=== PATIENT | female | born 1990 | race Caucasian/White ===

== ENCOUNTER 2016-09-10 11:52 | Emergency (ER) | payer OTHER ==
[~2016-09-10] VITALS: Ht 157.5 cm; Wt 89.0 kg
[~2016-09-10 11:52] MED LIST: CALC200T PO; CALC60TA2 PO; IBUP800T25 PO; PERCOCET PO; PREN1TAB64 PO
[2016-09-10 11:55] VITALS: Ht 157.5 cm; Wt 89.0 kg
--- NOTE | 2016-09-10 14:09 | ERD ---
ER Documentation Chief Complaint Date/Time DATE: 09/10/16 TIME: 14:06 Chief Complaint FROM [facility] , 10 WEEKS WITH SPOTTING HPI This is a 25-year-old female who presents to the emergency department today complaining of some brown discharge and spotting for the past 2 days. Patient states that she followed up with her clinic today and was told that there was no heart tones on her ultrasound and was sent here to the emergency department for further evaluation. States she does have some crampy abdominal pain. States that she was placed on Macrobid 2 days ago for urinary tract infection. She is not taking any medication for the pain. States she has intermittent nausea. Denies any fevers or chills. ROS All systems reviewed and are negative except as per history of present illness. Medications Home Meds Active Scripts Acetaminophen* (Tylophen*) 500 Mg Capsule, 1 CAP PO Q6H Y for PAIN AND OR ELEVATED TEMP, #30 CAP Prov:HERMILA MCKEON PA-C 09/10/16 Oxycodone Hcl/Acetaminophen (Percocet) 1 Tab Tab, 2 TAB PO Q4H Y for PAIN LEVEL 6-10, #30 TAB 0 Refills Prov:LOUIE LANDA MD 06/22/15 Ibuprofen* (Ibuprofen*) 800 Mg Tab, 800 MG PO Q8, #20 TAB 0 Refills Prov:LOUIE LANDA MD 06/22/15 Reported Medications Calcium Carbonate* (Tums*) 500 Mg Tab.chew, 500 MG PO TID Y for HEARTBURN, TAB.CHEW 05/28/15 Calcium Gluconate (Calcium Gluconate) 650 Mg Tablet, 650 MG PO BID, TAB 04/10/15 PNV CMB#95/Ferrous Fumarate/FA ( Tablet) 1 Each Tablet, 1 TAB PO DAILY, TAB 02/28/15 Allergies Allergies: Coded Allergies: Milk Containing Products (Verified Allergy, Severe, 05/28/15) peanut (Unverified Allergy, Unknown, 05/28/15) Physical Exam Vitals Vital Signs Date Time Temp Pulse Resp B/P Pulse Ox O2 Delivery O2 Flow Rate FiO2 09/10/16 11:55 98.3 88 18 143/90 99 Physical Exam Const: Tearful, no acute distress Head: Atraumatic Eyes: Normal Conjunctiva ENT: Normal External Ears, Nose and Mouth. Neck: Full range of motion..~ No meningismus. Resp: Clear to auscultation bilaterally Cardio: Regular rate and rhythm, no murmurs Abd: Soft, non tender, non distended. Normal bowel sounds. No right lower quadrant pain. No left lower quadrant pain. Skin: No petechiae or rashes Back: No midline or flank tenderness Ext: No cyanosis, or edema Neur: Awake and alert Psych: Normal Mood and Affect Result Diagram: 09/10/16 1430 Results 24 hrs Laboratory Tests Test 09/10/16 14:30 Basophils # 0.010^3/ul Basophils % 0.6% Beta HCG, Quantitative 5312.8mIU/ml Eosinophils # 0.110^3/ul Eosinophils % 1.3% Hematocrit 43.4% Hemoglobin 14.8g/dl Lymphocytes # 2.310^3/ul Lymphocytes % 31.6% Mean Corpuscular Hemoglobin 30.5pg Mean Corpuscular Hemoglobin Concent 34.1g/dl Mean Corpuscular Volume 89.5fl Mean Platelet Volume 11.0fl Monocytes # 0.510^3/ul Monocytes % 6.3% Neutrophils # 4.310^3/ul Neutrophils % 60.1% Nucleated Red Blood Cells # 0.010^3/ul Nucleated Red Blood Cells % 0.0/100WBC Platelet Count 55602^3/UL Red Blood Count 4.8510^6/ul Red Cell Distribution Width 12.6% Urine Bilirubin NEGATIVE Urine Clarity CLEAR Urine Color LT. YELLOW Urine Epithelial Cells OCCASIONAL Urine Glucose NEGATIVE% Urine Hemoglobin TRACE Urine Ketones NEGATIVE Urine Leukocyte Esterase NEGATIVE Urine Microscopic RBC 0-2/HPF Urine Microscopic WBC NONE SEEN/HPF Urine Nitrite NEGATIVE Urine Specific [place] 1.010 Urine Total Protein NEGATIVE Urine Urobilinogen 0.2 E.U./dL Urine pH 6.0 White Blood Count 7.110^3/ul DIAGNOSTIC IMAGING REPORT Patient: IZABELA SMITH : 1990 Age: 25 Sex: F MR #: [id number] DOS: 09/10/16 1405 Ordering MD: HERMILA MCKEON PA-C Location: [facility] Room/Bed: PROCEDURE: Obstetrical ultrasound . CLINICAL INDICATION: Vaginal bleeding TECHNIQUE: Multiple sonographic images of the pelvis were obtained utilizing a transabdominal and endovaginal technique. The images were reviewed on a PACS workstation. COMPARISON: None. FINDINGS: The uterus measures 9.7 x 5.5 cm. There is a single intrauterine present with the crown-rump length measuring 1.8 cm which corresponds to a calculated gestational age of 8 weeks and 2 days. No heart tones noted. There is a small area of subchorionic hemorrhage. The right ovary measures 3.4 x 2.2 x 3.0 cm. The left ovary measures 3.8 x 1.7 x 2.2 cm. There is a 2.2 cm corpus luteum cyst in the right ovary. No significant free fluid is present within the pelvis. RPTAT: AA IMPRESSION: Single intrauterine at 8 weeks and 2 days. No heart tones noted, consistent with demise. Small area of subchorionic hemorrhage. Right ovarian hemorrhagic corpus luteum cyst. .Robbi Dietz MD, MD Date Time Electronically viewed and signed by .Robbi Dietz MD, on 09/10/2016 15: 16 .S/ CC: HERMILA MCKEON PA-C Procedures/[facility] This is a A1 25-year-old female who presents to the emergency department today for further evaluation after being seen by her clinic and having an ultrasound with no heart tones. Patient is approximately 10 weeks . Given this I did obtain a complete OB workup. Laboratory work shows no elevated white blood cell count. She is not anemic. Platelets are within normal limits. UA is negative for infection. Beta quant hCG 5312.8 Rh status B + Ultrasound shows a single intrauterine at 8 weeks and 2 days. There are no heart tones consistent with demise. There is a small area of subchorionic hemorrhage. There is a 2.2 cm corpus luteum cyst in the right ovary. There is no significant free fluid present within the pelvis. Patient symptoms at this time is consistent with demise and missed . I have explained this to the patient. Patient was instructed to get a repeat beta quant in 48 hours to make sure that it is trending down. She is instructed to follow-up with her clinic for a likely D&C. Patient indicated she has an appointment on Tuesday at her [facility] for follow-up She declined any pain medication or medication for nausea here in the emergency department. I will give her a prescription for Tylenol for home. At this time the patient is stable for discharge and outpatient management. Patient should follow up with their PCP in the next 1-2 days. They may return to the emergency department sooner for any persistent or worsening of symptoms. Patient understood and agreed with the plan. Departure Diagnosis: Primary Impression: Vaginal bleeding in patient at less than 20 weeks gestation Condition: HERMILA Salazar PA-C Sep 10, 2016 14:09
[2016-09-10 14:37] LABS: ADD SCAN DIFF NO
[2016-09-10 14:40] LABS: BASOPHILS % 0.6 % (0.0-2.0); EOSINOPHILS # 0.1 10^3/ul (0.0-0.5); EOSINOPHILS % 1.3 % (0.0-7.0); HEMATOCRIT 43.4 % (37.0-47.0); HEMOGLOBIN 14.8 g/dl (12.0-16.0); LYMPHOCYTES # 2.3 10^3/ul (0.8-2.9); LYMPHOCYTES % 31.6 % (15.0-51.0); MEAN CORPUSCULAR HEMOGLOBIN 30.5 pg (29.0-33.0); MEAN CORPUSCULAR HGB CONC 34.1 g/dl (32.0-37.0); MEAN CORPUSCULAR VOLUME 89.5 fl (82.0-101.0); MONOCYTE # 0.5 10^3/ul (0.3-0.9); MONOCYTES % 6.3 % (0.0-11.0); NEUTROPHIL # 4.3 10^3/ul (1.6-7.5); NEUTROPHILS % 60.1 % (39.0-77.0); PLATELET COUNT 263 10^3/UL (140-415); RED BLOOD COUNT 4.85 10^6/ul (4.20-5.40); RED CELL DISTRIBUTION WIDTH 12.6 % (11.5-14.5); WHITE BLOOD COUNT 7.1 10^3/ul (4.8-10.8)
[2016-09-10 14:41] LABS: ADD UMIC YES; URINE BILIRUBIN (Dip) NEGATIVE (NEGATIVE); URINE BLOOD (Dip) TRACE (NEGATIVE); URINE COLOR LT. YELLOW (YELLOW); URINE GLUCOSE (Dip) NEGATIVE (NEGATIVE); URINE KETONES (Dip) NEGATIVE (NEGATIVE); URINE LEUKOCYTE ESTERASE (Dip) NEGATIVE (NEGATIVE); URINE NITRITE (Dip) NEGATIVE (NEGATIVE); URINE TOTAL PROTEIN (Dip) NEGATIVE (NEGATIVE); URINE UROBILINOGEN (Dip) 0.2 E.U./dL (0.1-1.0)
[2016-09-10 14:49] LABS: URINE RBCS 0-2 /HPF (0)
--- NOTE | 2016-09-10 15:16 | RADRPT ---
PROCEDURE: Obstetrical ultrasound . CLINICAL INDICATION: Vaginal bleeding TECHNIQUE: Multiple sonographic images of the pelvis were obtained utilizing a transabdominal and endovaginal technique. The images were reviewed on a PACS workstation. COMPARISON: None. FINDINGS: The uterus measures 9.7 x 5.5 cm. There is a single intrauterine present with the crown-rump length measuring 1.8 cm which c orresponds to a calculated gestational age of 8 weeks and 2 days. No heart tones noted. There is a small area of subchorionic hemorrhage. The right ovary measures 3.4 x 2.2 x 3.0 cm. The left ovary measures 3.8 x 1.7 x 2.2 cm. There is a 2.2 cm corpus luteum cyst in the right ovary. No significant free fluid is present within the pelvis. RPTAT: AA IMPRESSION: Single intrauterine at 8 weeks and 2 days. No heart tones noted, consistent with demise. Small area of subchorionic hemorrhage. Right ovarian hemorrhagic corpus luteum cyst. .Robbi Dietz MD, MD Date Time Electronically viewed and signed by .Robbi Dietz MD, on 09/10/2016 15:16 .S/
[2016-09-10] MEDS ORDERED: ACET500C5 PO (16:23)
== END 2016-09-10 16:50 | disposition home or self-care (01) ==
LOC: FTE 11:52
DX: O20.9 Hemorrhage in early pregnancy, unspecified (principal); Z3A.08 8 weeks gestation of pregnancy
CPT/HCPCS: 36415; 76801; 76817; 81001; 81003; 84702; 85025; 86900; 86901; Z7502

== ENCOUNTER 2016-09-15 19:28 | Inpatient (IN) | payer OTHER ==
[~2016-09-15] VITALS: Ht 160 cm; Wt 88.2 kg
[~2016-09-15 19:28] MED LIST changes: +ACET500C5 PO
[2016-09-15] MEDS ORDERED: SOD CHLORIDE 0.9% 1,000 ML IV STA (20:05)
[2016-09-15] MEDS ORDERED: ONDANSETRON 4 MG INJ IV STA (20:05)
[2016-09-15 20:30] LABS: ADD SCAN DIFF NO
[2016-09-15] MEDS ORDERED: morphine 10 MG INJ IV ONE (20:30)
[2016-09-15 20:32] LABS: ADD UMIC YES; BASOPHIL # 0.1 10^3/ul (0.0-0.1); BASOPHILS % 0.8 % (0.0-2.0); EOSINOPHILS # 0.3 10^3/ul (0.0-0.5); EOSINOPHILS % 2.5 % (0.0-7.0); HEMOGLOBIN 14.3 g/dl (12.0-16.0); LYMPHOCYTES # 3.3 10^3/ul (0.8-2.9); LYMPHOCYTES % 31.1 % (15.0-51.0); MEAN CORPUSCULAR HEMOGLOBIN 30.9 pg (29.0-33.0); MEAN CORPUSCULAR HGB CONC 34.9 g/dl (32.0-37.0); MEAN CORPUSCULAR VOLUME 88.6 fl (82.0-101.0); MEAN PLATELET VOLUME 10.9 fl (7.4-10.4); MONOCYTE # 0.8 10^3/ul (0.3-0.9); MONOCYTES % 7.9 % (0.0-11.0); NEUTROPHIL # 6.1 10^3/ul (1.6-7.5); NEUTROPHILS % 57.4 % (39.0-77.0); PLATELET COUNT 275 10^3/UL (140-415); RED BLOOD COUNT 4.63 10^6/ul (4.20-5.40); RED CELL DISTRIBUTION WIDTH 12.7 % (11.5-14.5); URINE BILIRUBIN (Dip) NEGATIVE (NEGATIVE); URINE BLOOD (Dip) 3+ (NEGATIVE); URINE GLUCOSE (Dip) NEGATIVE (NEGATIVE); URINE KETONES (Dip) NEGATIVE (NEGATIVE); URINE LEUKOCYTE ESTERASE (Dip) NEGATIVE (NEGATIVE); URINE NITRITE (Dip) NEGATIVE (NEGATIVE); URINE TOTAL PROTEIN (Dip) NEGATIVE (NEGATIVE); URINE UROBILINOGEN (Dip) 0.2 E.U./dL (0.1-1.0); WHITE BLOOD COUNT 10.7 10^3/ul (4.8-10.8)
[2016-09-15 20:34] LABS: URINE COLOR PALE PINK (YELLOW)
[2016-09-15 20:46] LABS: SQUAMOUS EPITHELIAL CELL,UR FEW
[2016-09-15 20:47] LABS: BACTERIA,URINE RARE
--- NOTE | 2016-09-15 22:05 | RADRPT ---
PROCEDURE: US Pelvis. CLINICAL INDICATION: Vaginal bleeding. History of embryonic demise 09/10/2016 TECHNIQUE: Multiple sonographic images of the pelvis were obtained utilizing a transabdominal and endovaginal technique. The images were reviewed on a PACS workstation. COMPARISON: 09/10/2016 FINDINGS: Uterus: Normal in size, contour and echogenicity with no evidence for myometrial masses. Size is est imated at 11.5 x 5.7 x 5.2 cm. Cervix: No abnormalities of significance are seen. Endometrium: Previously identified gestational sac, yolk sac and pole are no longer evident, the thickness is increased estimated at 29.4 mm. There is increased blood flow consistent with a ret ained products of conception as well as blood clots. Right ovary / adnexa: Normal in size estimated at 3.8 x 2.6 x 1.9 cm. No evidence for masses, norm al blood flow on Doppler interrogation. Left ovary/adnexa: Normal in size estimated at 3.4 x 1.8 x 1.7 cm. No evidence for solid masses, no rmal blood flow on Doppler interrogation. Cul-de-sac: No evidence of free fluid. RPTAT:HJJR IMPRESSION: 1. Slight increased blood flow within the thickened endometrium is concerning for retained products of conception, the gestational sac and pole on the study of 09/10/2016 are no longer visualiz ed. 2. Sonographically normal ovaries and adnexa. Physician Agata Date Time Electronically viewed and signed by Physician Agata on 09/15/2016 22:04 /
[2016-09-15] MEDS ORDERED: SOD CHLORIDE 0.9% 250 ML IV ONE (22:43)
--- NOTE | 2016-09-15 22:45 | QN ---
Documentation Comment My independent concise history is vaginal bleeding. My pertinent physical exam findings are passing clots with vaginal bleeding. The plan is transfusion of 2 units of packed red blood cells, coagulation screen, and OB admission. KORIN MOSER MD Sep 15, 2016 22:45
--- NOTE | 2016-09-15 22:58 | ERD ---
ER Documentation Chief Complaint Date/Time DATE: 09/15/16 TIME: 22:55 Chief Complaint miscarried on tue (8 wks 3 days), bleeding w cramps HPI This is a 26-year-old female presents to the ER with bleeding and cramping that started earlier today. Patient states that she miscarried on Tuesday. Patient was told to take medication by her OB however patient did not. Patient began to have severe bleeding this afternoon. She did pass some large clots earlier today. Patient took Motrin for the pain. Patient denies any urinary frequency or dysuria. She denies any vaginal discharge. Patient does have a history of a right hemorrhagic ovarian cyst. Patient denies any nausea vomiting or diarrhea. She denies any dizziness or weakness. A2. ROS 12 point review of systems was done, all negative except per HPI. Medications Home Meds Active Scripts Acetaminophen* (Tylophen*) 500 Mg Capsule, 1 CAP PO Q6H Y for PAIN AND OR ELEVATED TEMP, #30 CAP Prov:HERMILA MCKEON PA-C 09/10/16 Oxycodone Hcl/Acetaminophen (Percocet) 1 Tab Tab, 2 TAB PO Q4H Y for PAIN LEVEL 6-10, #30 TAB 0 Refills Prov:LOUIE LANDA MD 06/22/15 Ibuprofen* (Ibuprofen*) 800 Mg Tab, 800 MG PO Q8, #20 TAB 0 Refills Prov:LOUIE LANDA MD 06/22/15 Reported Medications Calcium Carbonate* (Tums*) 500 Mg Tab.chew, 500 MG PO TID Y for HEARTBURN, TAB.CHEW 05/28/15 Calcium Gluconate (Calcium Gluconate) 650 Mg Tablet, 650 MG PO BID, TAB 04/10/15 PNV CMB#95/Ferrous Fumarate/FA ( Tablet) 1 Each Tablet, 1 TAB PO DAILY, TAB 02/28/15 Allergies Allergies: Coded Allergies: Milk Containing Products (Verified Allergy, Severe, 05/28/15) peanut (Unverified Allergy, Unknown, 05/28/15) PMhx/Soc History of Surgery: No Anesthesia Reaction: No Hx Neurological Disorder: No Hx Respiratory Disorders: No Hx Cardiac Disorders: No Hx Psychiatric Problems: No Hx Miscellaneous Medical Probl: No Hx Alcohol Use: No Hx Substance Use: No Hx Tobacco Use: No Physical Exam Vitals Vital Signs Date Time Temp Pulse Resp B/P Pulse Ox O2 Delivery O2 Flow Rate FiO2 09/15/16 19:46 98.6 87 20 121/81 99 Physical Exam GENERAL: The patient is well developed and appropriate for usual state of health , in no apparent distress. HEENT: Atraumatic. CHEST: Clear to auscultation bilaterally. There are no rales, wheezes or rhonchi. HEART: Regular rate and rhythm. No murmurs, clicks, rubs or gallops. ABDOMEN: Soft, nontender and nondistended. Good bowel sounds. No rebound or guarding. No gross peritonitis. No gross organomegaly or masses. No Serrano sign or McBurney point tenderness. : patient has severe vaginal bleeding with large clots NEURO: Alert and oriented. SKIN: The skin is warm and dry. Result Diagram: 09/15/162024 Results 24 hrs Laboratory Tests Test 09/15/16 20:25 Basophils # 0.110^3/ul Basophils % 0.8% Beta HCG, Quantitative 1530.9mIU/ml Eosinophils # 0.310^3/ul Eosinophils % 2.5% Hematocrit 41.0% Hemoglobin 14.3g/dl Lymphocytes # 3.310^3/ul Lymphocytes % 31.1% Mean Corpuscular Hemoglobin 30.9pg Mean Corpuscular Hemoglobin Concent 34.9g/dl Mean Corpuscular Volume 88.6fl Mean Platelet Volume 10.9fl Monocytes # 0.810^3/ul Monocytes % 7.9% Neutrophils # 6.110^3/ul Neutrophils % 57.4% Nucleated Red Blood Cells # 0.010^3/ul Nucleated Red Blood Cells % 0.0/100WBC Platelet Count 63954^3/UL Red Blood Count 4.6310^6/ul Red Cell Distribution Width 12.7% Urine Bacteria RARE Urine Bilirubin NEGATIVE Urine Clarity CLEAR Urine Color PALE PINK Urine Glucose NEGATIVE% Urine Hemoglobin 3+ Urine Ketones NEGATIVE Urine Leukocyte Esterase NEGATIVE Urine Microscopic RBC 10-25/HPF Urine Microscopic WBC 0-2/HPF Urine Nitrite NEGATIVE Urine Specific [place] <=1.005 Urine Squamous Epithelial Cells FEW Urine Total Protein NEGATIVE Urine Urobilinogen 0.2 E.U./dL Urine pH 6.5 White Blood Count 10.710^3/ul Current Medications Medications (Trade) Dose Ordered Sig/Thad Route PRN Reason Start Time Stop Time Status Last Admin Dose Admin Sodium Chloride (NS) 1,000 ml @ 1,000 mls/hr Q1H STAT IV 09/15/16 20:05 09/15/16 21:04 DC 09/15/16 20:26 Morphine Sulfate (morphine) 6 mg ONCE ONCE IV 09/15/16 20:30 09/15/16 20:31 DC Ondansetron HCl 4 mg 4 mg ONCE STAT IV 09/15/16 20:05 09/15/16 20:07 DC Doxycycline Hyclate 100 mg/ Sodium Chloride 250 ml @ 250 mls/hr ONCE IVPB 09/15/16 23:00 Sodium Chloride (NS) 250 ml @ 0 mls/hr Q0M ONCE IV 09/15/16 22:43 09/15/16 22:44 DC Ondansetron HCl (Zofran Inj) 4 mg BRIDGE ORDER PRN IV NAUSEA AND/OR VOMITING 09/15/16 23:00 09/16/16 22:59 Acetaminophen (Tylenol Tab) 650 mg ER BRIDGE PRN PO MILD PAIN/FEVER 09/15/16 23:00 09/16/16 22:59 Oxytocin (Oxytocin) 40 units ONCE ONCE IV 09/15/16 23:00 09/15/16 23:01 UNV Methylergonovine Maleate (Methergine) 0.2 mg ONCE ONCE IM 09/15/16 23:00 09/15/16 23:01 Procedures/MDM This is a 26-year-old female presents to the ER with severe vaginal bleeding. I consulted glabrous on-call and patient would benefit from a D&C as she is bleeding a lot. Patient will be admitted for a D&C. This time she is hemodynamically dynamically stable and her vital signs are stable. Pain is controlled. Departure Diagnosis: Primary Impression: Vaginal bleeding Condition: Stable KALEE BRUNO Sep 15, 2016 22:58
[2016-09-15] MEDS ORDERED: DOXYCYCLINE 100 MG in SOD CHLORIDE 0.9% 250 ML IVPB SCH (23:00)
[2016-09-15] MEDS ORDERED: METHYLERGONOVINE 0.2 MG INJ IM ONE (23:00)
[2016-09-15] MEDS ORDERED: ACETAMINOPHEN 325 MG TAB PO PRN (23:00)
[2016-09-15] MEDS ORDERED: ONDANSETRON 4 MG INJ IV PRN (23:00)
[2016-09-15] MEDS ORDERED: OXYTOCIN 10 UNIT INJ IV ONE (23:00)
--- NOTE | 2016-09-15 23:19 | CONS ---
Date/Time of Note Date/Time of Note DATE: 09/15/16 TIME: 23:11 Assessment/Plan Assessment/Plan Chief Complaint/Hosp Course Heavy vaginal bleeding, due to incomplete miscarriage Patient had an episode of fainting and syncope in the restroom in the ED Her vitals now are stable I have discussed with the patient regarding the D&C. Risk and benefit of procedure including risk of infection, bleeding damage to surrounding structures including uterine perforation and risk of damage to bowel and bladder and adjacent structures and the risk of blood transfusion including but not limited to blood borne infection including HIV, hepatitis B and C and transfusion reaction, risk of uterine scar and future infertility, small also discussed with the patient in detail. Informed consent was obtained. All patient's questions were answered to the patient's best satisfaction. Ordered labs including fibrinogen and FDP as well as DIC panel Type and cross 2 units of blood IV line with IV fluid bolus Doxycycline 100 mg 1 ordered to be started in the ED Called OR and patient was both as an emergency Awaiting to hear from OR Methergine 0.2 mg IM 1 Pitocin 40 units in IV fluid to be started in the ED Problems: Consultation Date/Type/Reason Admit Date/Time Date of Consultation: Sep 15, 2016 Type of Consultation: [employer]ST Reason for Consultation heavy vaginal bleeding and syncope episode in ED Hx of Present Illness 26 years old with amenorrhea for 13 weeks and 4 days by her LMP and possible missed Ab, presented to ED with complaint of very heavy vaginal bleeding with passing large clots that has significantly worsened today. Bleeding started about 2 weeks ago she had initially spotting that gradually worsened for the past 2-3 days. She reports that she has passed some tissue as well as some blood clots when she arrived to the hospital. She also passed out when she was using the restroom in the ED however she did not have any trauma per report from [facility] who saw the patient and presented to me. I was consulted by ED attending to evaluate this patient for heavy vaginal bleeding after miscarriage. Patient apparently had an ultrasound 10 days ago in the emergency room that did not show any cardiac activity in the fetus that was consistent with demise. Ultrasound today showed thickened endometrial lining with evidence of echogenic material concerning for retained products of conception. Prior ultrasound on September 10 showed evidence of a fetus with no cardiac activity. The current ultrasound did not show evidence of fetus but is more consistent with retained products of conception Per patient was not planned. She was using condoms for control. LMP 06/12/2016. Patient had a history of full-term and status post 1. Had also a history of miscarriages prior to current . Subjective hx not possible: other Constitutional: requiring IVF Eyes: no complaints ENT: no complaints Respiratory: no complaints Cardiovascular: no complaints Gastrointestinal: no complaints Genitourinary: bleeding ( complains of very heavy vaginal bleeding and passing large clots and passed some tissue prior to coming to the hospital) Musculoskeletal: back pain, other (Cramps) Neurologic: dizziness Endocrine: no complaints Lymphatic: no complaints Psychological: anxiety, other (Sad) Past Medical History Medical History: no pertinent history Past Surgical History Status post section 1 Family History Significant Family History: no pertinent family hx Social History Alcohol Use: none Smoking Status: Never smoker Drug Use: none Other Social History 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 Boyfriend is at bedside and provides good support Exam/Review of Systems Vital Signs Vitals Vital Signs Date Time Temp Pulse Resp B/P Pulse Ox O2 Delivery O2 Flow Rate FiO2 09/15/16 19:46 98.6 87 20 121/81 99 Exam Constitutional: alert, oriented, other (Overweight), well developed Psych: anxiety, other (Sad) Head: atraumatic, normocephalic Eyes: EOMI, nl conjunctiva, nl lids ENMT: nl external ears & nose, nl lips & teeth, nl nasal mucosa & septum Neck: non-tender, supple Respiratory: clear to auscultation, normal air movement Cardiovascular: nl pulses, regular rate and rhythm Gastrointestinal: nl liver, spleen, non-tender, soft Genitourinary - Female: other (Speculum examination: Large amounts of blood clots noted coming through the cervix. There is about 200 cc blood on the tox at the time of examination as well as 100 cc blood noted filling this speculum was performed exam), uterus (Bimanual examination uterus about 11-12 cm size nontender. Cervix is about 1 cm open with some blood clots palpable through the cervix no adnexal tenderness. No uterine tenderness.) Musculoskeletal: nl extremities to inspection, nl gait and stance Extremities: normal pulses Neurological: ELECTRIC RANGE PREPARER II-XII intact, nl mental status, nl speech, nl strength Results Result Diagram: 09/15/162024 Results 24 hrs Laboratory Tests Test 09/15/16 20:25 Basophils # 0.1 Basophils % 0.8 Beta HCG, Quantitative 1530.9 Eosinophils # 0.3 Eosinophils % 2.5 Hematocrit 41.0 Hemoglobin 14.3 Lymphocytes # 3.3 H Lymphocytes % 31.1 Mean Corpuscular Hemoglobin 30.9 Mean Corpuscular Hemoglobin Concent 34.9 Mean Corpuscular Volume 88.6 Mean Platelet Volume 10.9 H Monocytes # 0.8 Monocytes % 7.9 Neutrophils # 6.1 Neutrophils % 57.4 Nucleated Red Blood Cells # 0.0 Nucleated Red Blood Cells % 0.0 Platelet Count 275 Red Blood Count 4.63 Red Cell Distribution Width 12.7 Urine Bacteria RARE Urine Bilirubin NEGATIVE Urine Clarity CLEAR Urine Color PALE PINK Urine Glucose NEGATIVE Urine Hemoglobin 3+ H Urine Ketones NEGATIVE Urine Leukocyte Esterase NEGATIVE Urine Microscopic RBC 10-25 Urine Microscopic WBC 0-2 Urine Nitrite NEGATIVE Urine Specific [place] <=1.005 L Urine Squamous Epithelial Cells FEW Urine Total Protein NEGATIVE Urine Urobilinogen 0.2 E.U./dL Urine pH 6.5 White Blood Count 10.7 # Medications Medications Current Medications Doxycycline Hyclate/Sodium Chloride (Vibramycin/NS) 250 ml @ 250 mls/hr ONCE IVPB ; Start 09/15/16 at 23:00 Oxytocin (Oxytocin) 40 units ONCE ONCE IV ; Start 09/15/16 at 23:00; Stop 09/15 at 23:01; Status UNV Procedures Procedures PROCEDURE: US Pelvis. CLINICAL INDICATION: Vaginal bleeding. History of embryonic demise 09/10/2016 TECHNIQUE: Multiple sonographic images of the pelvis were obtained utilizing a transabdominal and endovaginal technique. The images were reviewed on a PACS workstation. COMPARISON: 09/10/2016 FINDINGS: Uterus: Normal in size, contour and echogenicity with no evidence for myometrial masses. Size is estimated at 11.5 x 5.7 x 5.2 cm. Cervix: No abnormalities of significance are seen. Endometrium: Previously identified gestational sac, yolk sac and pole are no longer evident, the thickness is increased estimated at 29.4 mm. There is increased blood flow consistent with a retained products of conception as well as blood clots. Right ovary / adnexa: Normal in size estimated at 3.8 x 2.6 x 1.9 cm. No evidence for masses, normal blood flow on Doppler interrogation. Left ovary/adnexa: Normal in size estimated at 3.4 x 1.8 x 1.7 cm. No evidence for solid masses, normal blood flow on Doppler interrogation. Cul-de-sac: No evidence of free fluid. RPTAT:HJJR IMPRESSION: 1. Slight increased blood flow within the thickened endometrium is concerning for retained products of conception, the gestational sac and pole on the study of 09/10/2016 are no longer visualized. 2. Sonographically normal ovaries and adnexa. ROSA BALDERAS MD Sep 15, 2016 23:19
[2016-09-16] VITALS (19 sets, daily range): BP systolic 91–121; BP diastolic 45–72; PULSE 68–92; RESP 14–24; Ht 160 cm; Wt 88.2 kg
[2016-09-16] MEDS ORDERED: GLYCOPYRROLATE 0.4 MG INJ ONE (00:21)
[2016-09-16] MEDS ORDERED: NEOSTIGMINE 3 MG/3 ML SYRINGE ONE (00:21)
[2016-09-16] MEDS ORDERED: PROPOFOL 20 ML ONE (00:21)
[2016-09-16] MEDS ORDERED: LIDOCAINE 2% (SDV) 5 ML INJ ONE (00:21)
[2016-09-16] MEDS ORDERED: ROCURONIUM 50 MG INJ ONE (00:21)
[2016-09-16] MEDS ORDERED: SUCCINYLCHOLINE CHLORIDE 100 MG/5 ML SYG IV ONE (00:21)
[2016-09-16] MEDS ORDERED: MEPERIDINE 100 MG INJ ONE (00:21)
[2016-09-16 00:23] LABS: FIBRIN SPLIT PRODUCT <10 ug/ml (<10)
[2016-09-16] MEDS ORDERED: ONDANSETRON 4 MG INJ ONE (00:24)
[2016-09-16] MEDS ORDERED: METOCLOPRAMIDE 10 MG INJ ONE (00:24)
[2016-09-16] MEDS ORDERED: MIDAZOLAM 1 MG/ML 2 ML INJ IV PRN (00:30)
[2016-09-16] MEDS ORDERED: METOCLOPRAMIDE 10 MG INJ IV PRN (00:30)
[2016-09-16] MEDS ORDERED: FENTAnyl 50 MCG/ML VIAL IV PRN ×2 (00:30)
[2016-09-16] MEDS ORDERED: HYDROmorphONE (0.2 MG/ML) 10ML SYG IV PRN ×2 (00:30)
[2016-09-16] MEDS ORDERED: ONDANSETRON 4 MG INJ IV PRN (00:30)
[2016-09-16] MEDS ORDERED: DIPHENHYDRAMINE 50 MG INJ IV PRN (00:30)
[2016-09-16] MEDS ORDERED: MEPERIDINE 25 MG INJ IV PRN (00:30)
[2016-09-16 00:34] LABS: INR 0.97; PROTIME 12.9 Sec (12.2-14.2)
[2016-09-16 00:35] LABS: PARTIAL THROMBOPLASTIN TIME 30.6 Sec (25.0-35.0); THROMBIN TIME 15.7 SEC (13.8-19.1)
[2016-09-16] MEDS ORDERED: OXYTOCIN 10 UNIT INJ ONE (00:42)
[2016-09-16] MEDS ORDERED: CEFAZOLIN 1 GM INJ ONE (00:49)
[2016-09-16] MEDS ORDERED: HYDROCODONE/APAP (5/325) TAB PO PRN (01:30)
[2016-09-16] MEDS ORDERED: IBUPROFEN 600 MG TAB PO PRN (01:30)
--- NOTE | 2016-09-16 01:43 | OPR ---
Operative Report Planned Procedure Free Text/Dictation 26-year-old with heavy vaginal bleeding consistent with incomplete miscarriage with recent episodes of syncope in the emergency room will be transferred to the OR for emergency D&C Procedure date Sep 16, 2016 Procedure(s) Dilatation and curettage Performed by: ROSA BALDERAS MD Anesthesiologist: TIERRA CARTER MD Pre-procedure diagnosis Incomplete miscarriage Anesthesia Type: MAC Procedure Description Under satisfactory LMA] anesthesia, the patient was prepped and draped and placed in dorsal lithotomy position. timeout completed and placed patient identified correctly. Then examined under anesthesia performed and uterus was noted to be about 12 cm size. Up in placement of the weighted speculum large amount of blood clots as well as large placental tissue was noted expelling through the cervix that was removed using ring forceps. There was a total of about 150 cc blood clot inside the vagina expelled. then the weighted speculum was placed inside the vagina and the cervix was noted to be completely open. Anterior lip of the cervix was grasped with tenaculum. Using a uterine sound the depth of the uterus was measured and was noted to be about 11 cm. Cervix was fully dilated and it was accommodating Hegar dilator #10. Then using an Vacurette #10 while suctioning the entire endometrial cavity and 360 was suction. Then using sharp curettes the entire endometrium at 360 was curettes. Gritty sensation was noted that confirmed adequate removal of products of conception. Then the tenaculum from anterior lip of the cervix was removed. There was bleeding from the right side of the cervix of the area of tenaculum placement. Bleeding was controlled using a single figure of 8 suture using 2-0 Vicryl. Then the uterus was noted to be contracted. Hemostasis noted to be complete. Then the instrument removed from vagina. Patient tolerated the procedure well. Sponge lap counts and needle counts were correct 2. Patient was then transferred to recovery room in stable condition She will be transferred to [facility] and will be kept overnight for observation. Of note that patient received 2 g of Ancef during the procedure. Doxycycline had been ordered in the emergency room but had not been administered to the patient although it had been ordered to be administered preoperatively. Patient will receive 200 mg of doxycycline postop. Post-Procedure Post-procedure diagnosis Incomplete miscarriage Findings: POC Specimen removed: Yes Complications: None Pt Condition post procedure: stable Disposition: PACU Physician Certification I, the undersigned physician, hereby certify that I have discussed the procedure described in this consent form with this patient (or the patient's legal equal opportunity representative), including: * The risk and benefits of the procedure; * Any adverse reactions that may reasonably be expected to occur; * Any alternative efficacious methods of treatment which may be medically viable ; * The potential problems that may occur during recuperation; * Potential for blood transfusion and associated risks/benefits; and * Any research or economic interest I may have regarding this treatment. I further certify that the patient/legally responsible person was encouraged to ask question and that all questions were answered. ROSA BALDERAS MD Sep 16, 2016 01:43
--- NOTE | 2016-09-16 01:45 | PD.PPDC ---
NETWORK RELAY TESTER Discharge Instruction Condition Patient Condition: Good Diet Diet: Resume Regular Diet Special Diet: Iron rich diet Follow-up Follow-up with Physician: 2, Week/Weeks Provider Information: Follow-up in 2 weeks with her own TRANSITION MANAGER Return to clinic for TRANSITION MANAGER Instructions: Fever greater than 101 Chills Worsening abdominal pain Excessive Vaginal Bleeding More than 2 pads per hour Unable to tolerate diet Comment: Presented to emergency room if she has any increased vaginal bleeding that needs to soak a pad every 2 hours or more, fever or chills, increased abdominal pain and cramps or any other concerns ROSA BALDERAS MD Sep 16, 2016 01:44
[2016-09-16] MEDS: IBUPROFEN 800 MG TAB PO SCH ×2 (02:00→06:00)
[2016-09-16] MEDS ORDERED: ACETAMINOPHEN 500 MG TAB PO PRN (02:00)
[2016-09-16] MEDS ORDERED: POLYSACCHARIDE IRON COMPLEX CAP PO ONE (02:00)
[2016-09-16] MEDS ORDERED: CALCIUM CARBONATE 500 MG CHEW TAB PO PRN (02:00)
[2016-09-16] MEDS ORDERED: DOXYCYCLINE 100 MG TAB PO ONE (02:00)
[2016-09-16] MEDS ORDERED: OXYCODONE/ACETAMINOPHEN (5/325) TAB PO PRN (02:00)
[2016-09-16] MEDS: LACTATED RINGER'S 1,000 ML IV SCH ×2 (02:39→11:29)
[2016-09-16 05:04] LABS: ADD SCAN DIFF NO
[2016-09-16 05:29] LABS: BASOPHILS % 0.5 % (0.0-2.0); EOSINOPHILS # 0.2 10^3/ul (0.0-0.5); EOSINOPHILS % 2.7 % (0.0-7.0); HEMATOCRIT 32.4 % (37.0-47.0); LYMPHOCYTES # 2.7 10^3/ul (0.8-2.9); LYMPHOCYTES % 32.2 % (15.0-51.0); MEAN CORPUSCULAR HEMOGLOBIN 30.6 pg (29.0-33.0); MEAN CORPUSCULAR VOLUME 90.3 fl (82.0-101.0); MEAN PLATELET VOLUME 11.2 fl (7.4-10.4); MONOCYTE # 0.6 10^3/ul (0.3-0.9); MONOCYTES % 6.8 % (0.0-11.0); NEUTROPHIL # 4.8 10^3/ul (1.6-7.5); NEUTROPHILS % 57.6 % (39.0-77.0); PLATELET COUNT 208 10^3/UL (140-415); RED BLOOD COUNT 3.59 10^6/ul (4.20-5.40); RED CELL DISTRIBUTION WIDTH 12.9 % (11.5-14.5); WHITE BLOOD COUNT 8.3 10^3/ul (4.8-10.8)
[2016-09-16] MEDS: CALCIUM CARBONATE 500 MG CHEW TAB PO SCH ×2 (08:50→12:40)
--- NOTE | 2016-09-16 11:59 | PDOCDIS ---
Discharge Instructions DIAGNOSIS Discharge Diagnosis: 13-1/2 weeks . Severe vaginal bleeding and a spontaneous CONDITION Patient Condition: Stable - September 16, 2016 Hospital consult on discharge 26 years old with amenorrhea for 13 weeks and 4 days by her LMP and possible missed Ab, presented to ED with complaint of very heavy vaginal bleeding with passing large clots that has significantly worsened today. Bleeding started about 2 weeks ago she had initially spotting that gradually worsened for the past 2-3 days. She reports that she has passed some tissue as well as some blood clots when she arrived to the hospital. She also passed out when she was using the restroom in the ED. she was subsequently admitted in the hospital. The lab works were ordered. Antibiotics Pitocin and Methergine was given. Patient then was taken to the operating room and a dilatation and curettage was performed . Postoperatively patient is doing well she is hemodynamically stable. Her hemoglobin and hematocrit are okay On examination today she has no complaints abdomen is soft. She has a small amount of lochia no true bleeding or hemorrhage. She apparently did not desire to continue with this . I I gave her detailed information about the contraception. And we will discharge her to be followed in her obstetricians clinic. Laboratory Tests Test 09/15/16 20:25 09/15/16 23:00 09/16/16 04:35 Activated Partial Thromboplast Time 30.6Sec Basophils # 0.110^3/ul 0.010^3/ul Basophils % 0.8% 0.5% Beta HCG, Quantitative 1530.9mIU/ml Eosinophils # 0.310^3/ul 0.210^3/ul Eosinophils % 2.5% 2.7% Hematocrit 41.0% 32.4% Hemoglobin 14.3g/dl 11.0g/dl INR International Normalized Ratio 0.97 Lymphocytes # 3.310^3/ul 2.710^3/ul Lymphocytes % 31.1% 32.2% Mean Corpuscular Hemoglobin 30.9pg 30.6pg Mean Corpuscular Hemoglobin Concent 34.9g/dl 34.0g/dl Mean Corpuscular Volume 88.6fl 90.3fl Mean Platelet Volume 10.9fl 11.2fl Monocytes # 0.810^3/ul 0.610^3/ul Monocytes % 7.9% 6.8% Neutrophils # 6.110^3/ul 4.810^3/ul Neutrophils % 57.4% 57.6% Nucleated Red Blood Cells # 0.010^3/ul 0.010^3/ul Nucleated Red Blood Cells % 0.0/100WBC 0.0/100WBC Platelet Count 10360^3/UL 27824^3/UL Prothrombin Time 12.9Sec Prothrombin Time Ratio 1.0 Red Blood Count 4.6310^6/ul 3.5910^6/ul Red Cell Distribution Width 12.7% 12.9% Thrombin Time 15.7SEC Urine Bacteria RARE Urine Bilirubin NEGATIVE Urine Clarity CLEAR Urine Color PALE PINK Urine Glucose NEGATIVE% Urine Hemoglobin 3+ Urine Ketones NEGATIVE Urine Leukocyte Esterase NEGATIVE Urine Microscopic RBC 10-25/HPF Urine Microscopic WBC 0-2/HPF Urine Nitrite NEGATIVE Urine Specific [place] <=1.005 Urine Squamous Epithelial Cells FEW Urine Total Protein NEGATIVE Urine Urobilinogen 0.2 E.U./dL Urine pH 6.5 White Blood Count 10.710^3/ul 8.310^3/ul Fibrinogen 347.0mg/dl Plasma Fibrin Degradation Products <10ug/ml Current Medications Medications (Trade) Dose Ordered Sig/Thad Route PRN Reason Start Time Stop Time Status Last Admin Dose Admin Sodium Chloride (NS) 1,000 ml @ 1,000 mls/hr Q1H STAT IV 09/15/16 20:05 09/15/16 21:04 DC 09/15/16 20:26 Morphine Sulfate (morphine) 6 mg ONCE ONCE IV 09/15/16 20:30 09/15/16 20:31 DC Ondansetron HCl 4 mg 4 mg ONCE STAT IV 09/15/16 20:05 09/15/16 20:07 DC Doxycycline Hyclate 100 mg/ Sodium Chloride 250 ml @ 250 mls/hr ONCE IVPB 09/15/16 23:00 09/16/16 01:37 DC Sodium Chloride (NS) 250 ml @ 0 mls/hr Q0M ONCE IV 09/15/16 22:43 09/15/16 22:44 DC Ondansetron HCl (Zofran Inj) 4 mg BRIDGE ORDER PRN IV NAUSEA AND/OR VOMITING 09/15/16 23:00 09/16/16 01:45 DC Acetaminophen (Tylenol Tab) 650 mg ER BRIDGE PRN PO MILD PAIN/FEVER 09/15/16 23:00 09/16/16 01:45 DC Oxytocin (Oxytocin) 40 units ONCE ONCE IV 09/15/16 23:00 09/15/16 23:30 DC Methylergonovine Maleate (Methergine) 0.2 mg ONCE ONCE IM 09/15/16 23:00 09/15/16 23:01 DC Hydromorphone HCl (Dilaudid (Rec)) 0.2 mg PACU ORDER PRN IV PAIN LEVEL 1-5 09/16/16 00:30 09/16/16 01:45 DC Hydromorphone HCl (Dilaudid (Rec)) 0.4 mg PACU ORDER PRN IV PAIN LEVEL 6-10 09/16/16 00:30 09/16/16 01:45 DC Fentanyl (Sublimaze) 25 mcg PACU ORDER PRN IV PAIN LEVEL 1-5 09/16/16 00:30 09/16/16 01:45 DC Fentanyl (Sublimaze) 50 mcg PACU ODER PRN IV PAIN LEVEL 6-10 09/16/16 00:30 09/16/16 01:45 DC Ondansetron HCl (Zofran Inj) 4 mg PACU ORDER PRN IV NAUSEA AND/OR VOMITING 09/16/16 00:30 09/16/16 01:45 DC Metoclopramide HCl (Reglan) 10 mg PACU ORDER PRN IV NAUSEA AND/OR VOMITING 09/16/16 00:30 09/16/16 01:45 DC Meperidine HCl (Demerol) 25 mg PACU ORDER PRN IV POST-OP RIGORS 09/16/16 00:30 09/16/16 01:45 DC Diphenhydramine HCl (Benadryl) 25 mg PACU ORDER PRN IV PRURITUS 09/16/16 00:30 09/16/16 01:45 DC Midazolam HCl (Versed) 0.5 mg PACU ORDER PRN IV ANXIETY 09/16/16 00:30 09/16/16 01:45 DC Lidocaine (Xylocaine 2% (Sdv)) 100 mg STK-MED ONCE .ROUTE 09/16/16 00:21 09/16/16 00:22 DC Succinylcholine Chloride (Anectine Syringe) 100 mg STK-MED ONCE IV 09/16/16 00:21 09/16/16 00:22 DC Glycopyrrolate (Robinul) 0.4 mg STK-MED ONCE .ROUTE 09/16/16 00:21 09/16/16 00:22 DC Rocuronium [place] 50 mg 50 mg STK-MED ONCE .ROUTE 09/16/16 00:21 09/16/16 00:22 DC Propofol (Diprivan) 20 ml @ ud STK-MED ONCE .ROUTE 09/16/16 00:21 09/16/16 00:22 DC Neostigmine Methylsulfate (Neostigmine) 3 mg STK-MED ONCE .ROUTE 09/16/16 00:21 09/16/16 00:22 DC Meperidine HCl (Demerol) 100 mg STK-MED ONCE .ROUTE 09/16/16 00:21 09/16/16 00:22 DC Ondansetron HCl (Zofran Inj) 4 mg STK-MED ONCE .ROUTE 09/16/16 00:24 09/16/16 00:25 DC Metoclopramide HCl (Reglan) 10 mg STK-MED ONCE .ROUTE 09/16/16 00:24 09/16/16 00:25 DC Oxytocin (Oxytocin) 10 units STK-MED ONCE .ROUTE 09/16/16 00:42 09/16/16 00:43 DC Cefazolin Sodium 1 gm 1 gm STK-MED ONCE .ROUTE 09/16/16 00:49 09/16/16 00:50 DC Lactated Ringer's (Lr) 1,000 ml @ 100 mls/hr Q10H IV 09/16/16 01:29 09/16/16 02:39 Ibuprofen (Motrin) 600 mg Q8H PRN PO PAIN AND OR ELEVATED TEMP 09/16/16 01:30 09/16/16 02:33 Acetaminophen/ Hydrocodone Bitart ([place] (5/325)) 1 tab Q4H PRN PO PAIN LEVEL 6-10 09/16/16 01:30 Doxycycline Hyclate (Vibramycin) 200 mg ONCE ONCE PO 09/16/16 02:00 09/16/16 02:01 DC Ibuprofen (Motrin) 800 mg Q8 PO 09/16/16 02:00 Oxycodone/ Acetaminophen (Percocet (5/ 325)) 2 tab Q4H PRN PO PAIN LEVEL 6-10 09/16/16 02:00 Acetaminophen (Tylenol Tab) 500 mg Q6H PRN PO PAIN AND OR ELEVATED TEMP 09/16/16 02:00 Calcium Carbonate (Tums) 500 mg TID PRN PO HEARTBURN 09/16/16 02:00 Calcium Carbonate (Tums) 500 mg PC MEALS PO 09/16/16 08:50 Polysaccharide Iron Complex (Niferex-150) 1 cap ONCE ONCE PO 09/16/16 02:00 09/16/16 02:01 DC 09/16/16 02:34 Influenza Virus Vaccine (Fluzone) 0.5 ml ONCE ONCE IM* 09/18/16 09:00 09/18/16 09:01 HOME CARE INSTRUCTIONS: Diet Instructions: Regular ACTIVITY: Activity Restrictions: Slowly Increase Activity LAURI BAÑUELOS MD Sep 16, 2016 11:59
[2016-09-18] MEDS ORDERED: INFLUENZA VIRUS VACCINE 0.5 ML (DISPENSING) IM* ONE (09:00)
== END 2016-09-16 13:00 | disposition home or self-care (01) | DRG 770 ==
LOC: FTE 19:28 → MS1 22:47
PROVIDERS: ADMIT Obstetrics & Gynecology Obstetrics; ATTEND Obstetrics & Gynecology Obstetrics
PROC: 10D18ZZ Extraction of Products of Conception, Retained, Via Natural or Artificial Opening Endoscopic (ICD-10-PCS; principal; 2016-09-16)
DX: O03.4 Incomplete spontaneous abortion without complication (principal); E66.9 Obesity, unspecified; Z68.34 Body mass index [BMI] 34.0-34.9, adult
CPT/HCPCS: 36415; 76801; 76817; 81001; 81003; 84702; 85025; 85049; 85362; 85384; 85610; 85670; 85730; 86850; 86900; 86901; 86920; 88305; 93005; 96360; 96361; J0330; J0690; J2175; J2210; J2405; J2590; J2710; J2765; J7030; J7040; J7050; J7120

== ENCOUNTER 2016-12-07 16:33 | Emergency (ER) | payer OTHER ==
[~2016-12-07] VITALS: Ht 160 cm; Wt 92.5 kg
[2016-12-07 16:37] VITALS: Ht 160 cm; Wt 92.5 kg
[2016-12-07] MEDS ORDERED: IBUP-1542 PO (17:34)
[2016-12-07] MEDS ORDERED: RANI150T9 PO (17:34)
[2016-12-07] MEDS ORDERED: OMEP20CA16 PO (17:34)
[2016-12-07 17:52] VITALS: BP 128/61; PULSE 77; RESP 16
--- NOTE | 2016-12-08 00:17 | ERD ---
ER Documentation Chief Complaint Date/Time DATE: 12/08/16 TIME: 00:09 Chief Complaint chest pressure radiating to back x1day, worse today, had D&C in September HPI 26-year-old female complaining of epigastric abdominal pain since 2:30 PM. Pain is sharp, comes and goes, onset shortly after eating quesadilla. Patient also reports chest tightness, as well as numbness tingling on her lips and face. Her symptoms has improved somewhat since onset. Patient reports history of heartburn and acid reflux. She also reports financial stress at home. Denies shortness of breath. Denies fever or chills. Denies nausea, vomiting, or diarrhea ROS All systems reviewed and are negative except as per history of present illness. Medications Home Meds Active Scripts Ibuprofen* (Motrin*) 600 Mg Tab, 600 MG PO Q6H Y for PAIN AND OR ELEVATED TEMP, #30 TAB Prov:OSEAS MCKEON NP 12/07/16 Ranitidine Hcl* (Zantac*) 150 Mg Tablet, 150 MG PO BID Y for EPIGASTRIC PAIN, # 30 TAB Prov:OSEAS MCKEON. BRIE 12/07/16 Omeprazole* (Omeprazole*) 20 Mg Capsule.dr, 20 MG PO DAILY, #14 Prov:OSEAS MCKEON NP 12/07/16 Acetaminophen* (Tylophen*) 500 Mg Capsule, 1 CAP PO Q6H Y for PAIN AND OR ELEVATED TEMP, #30 CAP Prov:HERMILA MCKEON PA-C 09/10/16 Oxycodone Hcl/Acetaminophen (Percocet) 1 Tab Tab, 2 TAB PO Q4H Y for PAIN LEVEL 6-10, #30 TAB 0 Refills Prov:LOUIE LANDA MD 06/22/15 Ibuprofen* (Ibuprofen*) 800 Mg Tab, 800 MG PO Q8, #20 TAB 0 Refills Prov:LOUIE LANDA MD 06/22/15 Reported Medications Calcium Carbonate* (Tums*) 500 Mg Tab.chew, 500 MG PO TID Y for HEARTBURN, TAB.CHEW 05/28/15 Calcium Gluconate (Calcium Gluconate) 650 Mg Tablet, 650 MG PO BID, TAB 04/10/15 PNV CMB#95/Ferrous Fumarate/FA ( Tablet) 1 Each Tablet, 1 TAB PO DAILY, TAB 02/28/15 Allergies Allergies: Coded Allergies: Milk Containing Products (Verified Allergy, Severe, 05/28/15) peanut (Unverified Allergy, Unknown, 05/28/15) PMhx/Soc History of Surgery: Yes () Anesthesia Reaction: No Hx Neurological Disorder: No Hx Respiratory Disorders: No Hx Cardiac Disorders: No Hx Psychiatric Problems: No Hx Miscellaneous Medical Probl: No Hx Alcohol Use: No Hx Substance Use: No Hx Tobacco Use: No Physical Exam Vitals Vital Signs Date Time Temp Pulse Resp B/P Pulse Ox O2 Delivery O2 Flow Rate FiO2 12/07/16 17:52 77 16 128/61 99 Room Air 12/07/16 16:37 97.6 80 18 129/69 100 Physical Exam General: Well-developed, well-nourished, conscious and coherent, in no distress Skin: Warm and dry without rash, good texture and turgor Head: Normocephalic without evidence of trauma Eyes: Sclera and conjunctivae normal; pupils equal, round, and reactive to light; extraocular movements are intact Neck: Supple without meningismus or adenopathy. Carotids are equal. Trachea midline. No bruits or JVD Chest: Normal AP diameter. Good expansion without retractions. Nontender. Lungs are clear to auscultate bilaterally with good tidal volume. Anterior chest wall tender to palpation bilaterally. Heart: Regular rate and rhythm. No murmur, rub, or gallops heard Abdomen: Soft, mild epigastric tenderness without masses, guarding, or rebound. Bowel sounds are active. No hepatosplenomegaly Extremities: Full range of motion. Good strength bilaterally. No clubbing, cyanosis, or edema. Peripheral pulses are intact. Sensation intact Neuro: Alert and oriented 4, GCS 15. Cranial nerves grossly intact. Motor and sensory exams nonfocal. Moves all extremities. Speech clear. Gait normal Procedures/MDM Well-appearing 26-year-old female presented to ED with epigastric pain and chest tightness 1 day. EKG: Normal sinus rhythm with rate 80 bpm, normal axis. No ST segment elevation or depression. No ectopic beats. No QT prolongation. Poor R-wave progression likely due to lead placement. No other EKG abnormalities. EKG read by Dr. Vidal. Low suspicion for acute coronary syndrome, aortic dissection, pneumonia, pneumothorax, or PE. Patient has reproducible chest wall tenderness to palpation. Likely patient chest pain was from costochondritis. Patient also has epigastric pain, likely due to gastritis. Low suspicion for acute appendicitis, cholecystitis, or other acute abdomen. Patient appears well, stable for discharge and outpatient management. Medical decision making shared with patient and family. Education provided to patient and family. Patient and family expressed understanding of the plan. Medications on discharge: Omeprazole, ranitidine, ibuprofen (to be taken after resolution of epigastric pain).. Follow-up: Primary care provider in 2-3 days or return to ED if worse. Departure Diagnosis: Primary Impression: Epigastric pain Additional Impression: Chest wall pain Condition: Stable Patient Instructions: Chest Wall Pain, Costochondritis, Gerd (Adult) Additional Instructions: Call your primary care doctor TOMORROW for an appointment during the next 2-3 days.See the doctor sooner or return here if your condition worsens before your appointment time. OSEAS MCKEON NP Dec 08, 2016 00:17
== END 2016-12-07 17:52 | disposition home or self-care (01) ==
LOC: FTE 16:33
DX: R10.13 Epigastric pain (principal)
CPT/HCPCS: 99283

== ENCOUNTER 2017-01-12 11:13 | Emergency (ER) | payer OTHER ==
[~2017-01-12] VITALS: Ht 165.1 cm; Wt 92.5 kg
[~2017-01-12 11:13] MED LIST changes: +IBUP-1542 PO; +OMEP20CA16 PO; +RANI150T9 PO
[2017-01-12 11:15] VITALS: Ht 165.1 cm; Wt 92.5 kg
[2017-01-12 11:57] LABS: ADD SCAN DIFF NO
[2017-01-12 12:02] LABS: BASOPHILS % 0.7 % (0.0-2.0); EOSINOPHILS # 0.2 10^3/ul (0.0-0.5); EOSINOPHILS % 2.7 % (0.0-7.0); HEMATOCRIT 42.1 % (37.0-47.0); HEMOGLOBIN 14.6 g/dl (12.0-16.0); LYMPHOCYTES # 2.1 10^3/ul (0.8-2.9); MEAN CORPUSCULAR HEMOGLOBIN 29.6 pg (29.0-33.0); MEAN CORPUSCULAR HGB CONC 34.7 g/dl (32.0-37.0); MEAN CORPUSCULAR VOLUME 85.2 fl (82.0-101.0); MEAN PLATELET VOLUME 11.1 fl (7.4-10.4); MONOCYTE # 0.4 10^3/ul (0.3-0.9); MONOCYTES % 7.3 % (0.0-11.0); NEUTROPHIL # 2.8 10^3/ul (1.6-7.5); NEUTROPHILS % 50.8 % (39.0-77.0); PLATELET COUNT 264 10^3/UL (140-415); RED BLOOD COUNT 4.94 10^6/ul (4.20-5.40); RED CELL DISTRIBUTION WIDTH 13.5 % (11.5-14.5); WHITE BLOOD COUNT 5.5 10^3/ul (4.8-10.8)
[2017-01-12 12:03] LABS: ADD UMIC YES; UR ASCORBIC ACID NEGATIVE (NEGATIVE); UR BILIRUBIN (Dip) NEGATIVE (NEGATIVE); UR BLOOD (Dip) 3+ mg/dL (NEGATIVE); UR CLARITY CLEAR (CLEAR); UR COLOR STRAW (YELLOW); UR GLUCOSE (Dip) NEGATIVE (NEGATIVE); UR KETONES (Dip) NEGATIVE (NEGATIVE); UR LEUKOCYTE ESTERASE (Dip) NEGATIVE Leu/ul (NEGATIVE); UR NITRITE (Dip) NEGATIVE (NEGATIVE); UR RBC 0 /HPF (0-5); UR SPECIFIC GRAVITY (Dip) 1.002 (1.003-1.030); UR TOTAL PROTEIN (Dip) NEGATIVE (NEGATIVE); UR UROBILINOGEN (Dip) NEGATIVE (NEGATIVE)
--- NOTE | 2017-01-12 12:15 | RADRPT ---
PROCEDURE: US Pelvis. CLINICAL INDICATION: vaginal bleeding TECHNIQUE: Multiple sonographic images of the pelvis were obtained utilizing a transabdominal and endovaginal technique. The images were reviewed on a PACS workstation. COMPARISON: None. FINDINGS: The uterus is normal in size and demonstrates a normal appearance of the myometrium. The endometria l stripe is heterogeneous in appearance and has the thickness of 11 mm. No intrauterine gestation is noted. The ovaries are normal in size and echogenicity. Normal Doppler flow is identified in both ovaries. The right ovary measures 3.3 x 2.9 x 2.7 cm. The left ovary measures 3.9 x 2.1 x 2.3 cm. There are normal ovarian follicles bilaterally. No free fluid is present within the pelvis.. RPTAT: AA IMPRESSION: No intrauterine gestation visualized. Differential diagnosis includes early , missed or ectopic . Follow-up ultrasound and HCG levels is recommended. .Robbi Dietz MD, MD Date Time Electronically viewed and signed by .Robbi Dietz MD, on 01/12/2017 12:14 .S/
[2017-01-12] MEDS ORDERED: ACET500C5 PO (12:43)
[2017-01-12 13:03] VITALS: BP 128/68; PULSE 77; RESP 18
--- NOTE | 2017-01-12 13:37 | ERD ---
ER Documentation Chief Complaint Date/Time DATE: 01/12/17 TIME: 13:27 Chief Complaint SENT BY PMD , VAG BLEED X 5 DAYS , LMP 12/04/16 HPI 26-year-old female sent by PCP for vaginal bleeding checking for possible missed . Patient reports positive home test on 01/04/2017. To start heavy vaginal bleeding on 01/08/2018, reports seeing 3 large blood clots. She did not check for possible POC. Patient reports pelvic cramping. The bleeding had eased up somewhat from last 2 days, but still heavier than normal menstruation. Patient stated that she had a miscarriage in the past, last episode was in September this year. This feels very much like a previous miscarriage. Denies fever or chills. Patient is SAB 3, LMP 12/04/2016. ROS All systems reviewed and are negative except as per history of present illness. Medications Home Meds Active Scripts Acetaminophen* (Tylophen*) 500 Mg Capsule, 1 CAP PO Q6H Y for PAIN AND OR ELEVATED TEMP, #20 CAP Prov:OSEAS MCKEON. BRIE 01/12/17 Ibuprofen* (Motrin*) 600 Mg Tab, 600 MG PO Q6H Y for PAIN AND OR ELEVATED TEMP, #30 TAB Prov:OSEAS MCKEON. LAB TESTER 12/07/16 Ranitidine Hcl* (Zantac*) 150 Mg Tablet, 150 MG PO BID Y for EPIGASTRIC PAIN, # 30 TAB Prov:OSEAS MCKEON. LAB TESTER 12/07/16 Omeprazole* (Omeprazole*) 20 Mg Capsule.dr, 20 MG PO DAILY, #14 Prov:OSEAS MCKEON. BRIE 12/07/16 Acetaminophen* (Tylophen*) 500 Mg Capsule, 1 CAP PO Q6H Y for PAIN AND OR ELEVATED TEMP, #30 CAP Prov:HERMILA MCKEON PA-C 09/10/16 Oxycodone Hcl/Acetaminophen (Percocet) 1 Tab Tab, 2 TAB PO Q4H Y for PAIN LEVEL 6-10, #30 TAB 0 Refills Prov:LOUIE LANDA MD 06/22/15 Ibuprofen* (Ibuprofen*) 800 Mg Tab, 800 MG PO Q8, #20 TAB 0 Refills Prov:LOUIE LANDA MD 06/22/15 Reported Medications Calcium Carbonate* (Tums*) 500 Mg Tab.chew, 500 MG PO TID Y for HEARTBURN, TAB.CHEW 05/28/15 Calcium Gluconate (Calcium Gluconate) 650 Mg Tablet, 650 MG PO BID, TAB 04/10/15 PNV CMB#95/Ferrous Fumarate/FA ( Tablet) 1 Each Tablet, 1 TAB PO DAILY, TAB 02/28/15 Allergies Allergies: Coded Allergies: Milk Containing Products (Verified Allergy, Severe, 05/28/15) peanut (Unverified Allergy, Unknown, 05/28/15) PMhx/Soc History of Surgery: Yes () Anesthesia Reaction: No Hx Neurological Disorder: No Hx Respiratory Disorders: No Hx Cardiac Disorders: No Hx Psychiatric Problems: No Hx Miscellaneous Medical Probl: No Hx Alcohol Use: No Hx Substance Use: No Hx Tobacco Use: No Physical Exam Vitals Vital Signs Date Time Temp Pulse Resp B/P Pulse Ox O2 Delivery O2 Flow Rate FiO2 01/12/17 13:03 77 18 128/68 99 Room Air 01/12/17 11:15 99.3 79 18 128/65 99 Physical Exam General: Well-developed, well-nourished, conscious and coherent, in no distress Skin: Warm and dry without rash, good texture and turgor Head: Normocephalic without evidence of trauma Eyes: Sclera and conjunctivae normal; pupils equal, round, and reactive to light; extraocular movements are intact Neck: Supple without meningismus or adenopathy. Carotids are equal. Trachea midline. No bruits or JVD Chest: Normal AP diameter. Good expansion without retractions. Nontender. Lungs are clear to auscultate bilaterally with good tidal volume Heart: Regular rate and rhythm. No murmur, rub, or gallops heard Abdomen: Soft and nontender without masses, guarding, or rebound. Bowel sounds are active. No hepatosplenomegaly Back: Without spinal or CVA tenderness Pelvis: Mild pelvic tenderness Extremities: Full range of motion. Good strength bilaterally. No clubbing, cyanosis, or edema. Peripheral pulses are intact. Sensation intact Neuro: Alert and oriented 4, GCS 15. Cranial nerves grossly intact. Motor and sensory exams nonfocal. Moves all extremities. Speech clear. Gait normal Result Diagram: 01/12/17 1150 Results 24 hrs Laboratory Tests Test 01/12/17 11:50 White Blood Count 5.510^3/ul Red Blood Count 4.9410^6/ul Hemoglobin 14.6g/dl Hematocrit 42.1% Mean Corpuscular Volume 85.2fl Mean Corpuscular Hemoglobin 29.6pg Mean Corpuscular Hemoglobin Concent 34.7g/dl Red Cell Distribution Width 13.5% Platelet Count 31912^3/UL Mean Platelet Volume 11.1fl Neutrophils % 50.8% Lymphocytes % 38.0% Monocytes % 7.3% Eosinophils % 2.7% Basophils % 0.7% Nucleated Red Blood Cells % 0.0/100WBC Neutrophils # 2.810^3/ul Lymphocytes # 2.110^3/ul Monocytes # 0.410^3/ul Eosinophils # 0.210^3/ul Basophils # 0.010^3/ul Nucleated Red Blood Cells # 0.010^3/ul Urine Color STRAW Urine Clarity CLEAR Urine pH 6.0 Urine Specific [place] 1.002 Urine Ketones NEGATIVEmg/dL Urine Nitrite NEGATIVEmg/dL Urine Bilirubin NEGATIVEmg/dL Urine Urobilinogen NEGATIVEmg/dL Urine Leukocyte Esterase NEGATIVELeu/ul Urine Microscopic RBC 0/HPF Urine Microscopic WBC 0/HPF Urine Hemoglobin 3+mg/dL Urine Glucose NEGATIVEmg/dL Urine Total Protein NEGATIVEmg/dl Beta HCG, Quantitative < 2.4mIU/ml PROCEDURE: US Pelvis. CLINICAL INDICATION: vaginal bleeding TECHNIQUE: Multiple sonographic images of the pelvis were obtained utilizing a transabdominal and endovaginal technique. The images were reviewed on a PACS workstation. COMPARISON: None. FINDINGS: The uterus is normal in size and demonstrates a normal appearance of the myometrium. The endometrial stripe is heterogeneous in appearance and has the thickness of 11 mm. No intrauterine gestation is noted. The ovaries are normal in size and echogenicity. Normal Doppler flow is identified in both ovaries. The right ovary measures 3.3 x 2.9 x 2.7 cm. The left ovary measures 3.9 x 2.1 x 2.3 cm. There are normal ovarian follicles bilaterally. No free fluid is present within the pelvis.. RPTAT: AA IMPRESSION: No intrauterine gestation visualized. Differential diagnosis includes early , missed or ectopic . Follow-up ultrasound and HCG levels is recommended. .Robbi Dietz MD, MD Date Time Electronically viewed and signed by .Robbi Dietz MD, MD on 01/12/2017 12: 14 .S/ CC: OSEAS MCKEON LAB TESTER Procedures/MDM ED course: CBC: Unremarkable. Beta hCG:<2.4 UA: 3+ hemoglobin, otherwise negative. Blood type: B+. RhoGAM is not indicated for patient. OB ultrasound: No intrauterine gestation visualized. Ovaries and adnexa normal. Medical decision-making: Well-appearing 26-year-old female who had a positive home test presented ED today reporting several days of heavy vaginal bleeding was large blood clots. Beta hCG quant today is less than 2.4, below the detectable threshold. No intrauterine or extrauterine is found ultrasound. I suspect patient had a complete . Low suspicion for ectopic , ovarian torsion, ruptured ovarian cyst. No sign of urinary tract infection. Patient has history of multiple spontaneous abortions, I recommend patient to follow-up with the OB for further evaluation. Patient appears well, stable for discharge and outpatient management. Medical decision making shared with patient and family. Education provided to patient and family. Patient and family expressed understanding of the plan. Medications on discharge: Tylenol. Follow-up: Primary care provider in 2-3 days or return to ED if worse. Medications on discharge: Tylenol. Follow-up: Primary care provider in 2 days or return to ED if worse. Departure Diagnosis: Primary Impression: Complete Condition: Stable Patient Instructions: Miscarriage, Spontaneous (Completed) Additional Instructions: Call your primary care doctor TOMORROW for an appointment during the next 2-3 days.See the doctor sooner or return here if your condition worsens before your appointment time. OSEAS MCKEON NP Jan 12, 2017 13:36
== END 2017-01-12 13:32 | disposition home or self-care (01) ==
LOC: FTE 11:13
DX: O03.9 Complete or unspecified spontaneous abortion without complication (principal); R10.2 Pelvic and perineal pain; Z91.010 Allergy to peanuts
CPT/HCPCS: 36415; 76801; 76817; 81001; 84702; 85025; 86900; 86901

== ENCOUNTER 2017-01-24 13:30 | Emergency (ER) | payer OTHER ==
[~2017-01-24] VITALS: Ht 162.6 cm; Wt 93.5 kg
[2017-01-24 13:42] VITALS: Ht 162.6 cm; Wt 93.5 kg
[2017-01-24] MEDS ORDERED: SOD CHLORIDE 0.9% 1,000 ML IV ONE (16:00)
[2017-01-24] MEDS ORDERED: DEXAMETHASONE 10 MG/ML 1 ML INJ IV ONE (16:00)
--- NOTE | 2017-01-24 16:02 | ERA ---
ER Documentation Chief Complaint Date/Time DATE: 01/24/17 TIME: 15:58 Chief Complaint headache, stiff neck since thur after gardasil shot and abd pain with n/v HPI This is a 26-year-old female with a chief complaint of headache, dizziness, stiff neck, nausea, abdominal pain 1 month. Patient has seen her PCP who got labs and rule out thyroid pathology. Patient was given vertigo medication by her primary that only gave her mild relief and because of adverse side effects including persistent sleepiness. Patient denies all of the symptoms, has no other complaints and describes no other associated manifestations. No recent travel vaccination status is up-to-date. Nursing notes have been reviewed and are consistent with history given ROS All systems reviewed and are negative except as per history of present illness. Medications Home Meds Active Scripts Acetaminophen* (Tylophen*) 500 Mg Capsule, 1 CAP PO Q6H Y for PAIN AND OR ELEVATED TEMP, #20 CAP Prov:OSEAS MCKEON NP 01/12/17 Ibuprofen* (Motrin*) 600 Mg Tab, 600 MG PO Q6H Y for PAIN AND OR ELEVATED TEMP, #30 TAB Prov:OSEAS MCKEON. BRIE 12/07/16 Ranitidine Hcl* (Zantac*) 150 Mg Tablet, 150 MG PO BID Y for EPIGASTRIC PAIN, # 30 TAB Prov:OSEAS MCKEON NP 12/07/16 Omeprazole* (Omeprazole*) 20 Mg Capsule.dr, 20 MG PO DAILY, #14 Prov:OSEAS MCKEON. BRIE 12/07/16 Acetaminophen* (Tylophen*) 500 Mg Capsule, 1 CAP PO Q6H Y for PAIN AND OR ELEVATED TEMP, #30 CAP Prov:HERMILA MCKEON PA-C 09/10/16 Oxycodone Hcl/Acetaminophen (Percocet) 1 Tab Tab, 2 TAB PO Q4H Y for PAIN LEVEL 6-10, #30 TAB 0 Refills Prov:LOUIE LANDA MD 06/22/15 Ibuprofen* (Ibuprofen*) 800 Mg Tab, 800 MG PO Q8, #20 TAB 0 Refills Prov:LOUIE LANDA MD 06/22/15 Reported Medications Calcium Carbonate* (Tums*) 500 Mg Tab.chew, 500 MG PO TID Y for HEARTBURN, TAB.CHEW 05/28/15 Calcium Gluconate (Calcium Gluconate) 650 Mg Tablet, 650 MG PO BID, TAB 04/10/15 PNV CMB#95/Ferrous Fumarate/FA ( Tablet) 1 Each Tablet, 1 TAB PO DAILY, TAB 02/28/15 Allergies Allergies: Coded Allergies: Milk Containing Products (Verified Allergy, Severe, 01/24/17) peanut (Unverified Allergy, Unknown, 01/24/17) PMhx/Soc History of Surgery: Yes () Anesthesia Reaction: No Hx Neurological Disorder: No Hx Respiratory Disorders: No Hx Cardiac Disorders: No Hx Psychiatric Problems: No Hx Miscellaneous Medical Probl: No Hx Alcohol Use: No Hx Substance Use: No Hx Tobacco Use: No Physical Exam Vitals Vital Signs Date Time Temp Pulse Resp B/P Pulse Ox O2 Delivery O2 Flow Rate FiO2 01/24/17 13:42 97.5 81 20 124/72 97 Physical Exam Const: Healthy-appearing. Well-nourished. Well-developed. No acute distress. Head: Normocephalic, Atraumatic. Eyes: Non-injected; No discharge or foreign body. EOMI and TUYET bilaterally. Ears: Normal External Ears, EACs clear, TM normal bilaterally without erythema. Nose: Normal external nose; no discharge, septal deviation, or sinus tenderness. Oral: No oral edema visualized. Mucous membranes moist and pink. Neck: No cervical lymphadenopathy, masses or goiter palpated. Trachea midline. Supple ~ No meningismus. Pulm: Good air movement in upper and lower respiratory tracts. No dyspnea, stridor, tripoding or drooling. Clear to auscultation bilaterally. Cardio: Regular rate and rhythm; No murmurs, gallops or rubs auscultated. No JVD grossly observed. Radial and posterior tibial pulses 2+ bilaterally. No cyanosis. Capillary refill less than 2 seconds. Abd: Soft, non tender, non distended. No guarding, masses. Normal bowel sounds. No McBurney's point tenderness. MS: Normal motor strength, normal tone with gross examination. Skin: No petechiae or rashes. No ulcer, induration, jaundice. Good turgor. Back: No midline, flank or CVA tenderness. Ext: No edema or palpable cord. Normal movement of all extremities grossly observed. Neur: Awake, alert and oriented x3. Neurovascularly intact bilaterally. Psych: Normal Mood and Affect. Result Diagram: 01/24/17 1605 01/24/17 1605 Results 24 hrs Laboratory Tests Test 01/24/17 16:05 01/24/17 16:30 White Blood Count 7.910^3/ul Red Blood Count 4.8610^6/ul Hemoglobin 14.6g/dl Hematocrit 42.6% Mean Corpuscular Volume 87.7fl Mean Corpuscular Hemoglobin 30.0pg Mean Corpuscular Hemoglobin Concent 34.3g/dl Red Cell Distribution Width 13.4% Platelet Count 76703^3/UL Mean Platelet Volume 11.3fl Neutrophils % 57.7% Lymphocytes % 32.0% Monocytes % 6.1% Eosinophils % 3.2% Basophils % 0.6% Nucleated Red Blood Cells % 0.0/100WBC Neutrophils # 4.510^3/ul Lymphocytes # 2.510^3/ul Monocytes # 0.510^3/ul Eosinophils # 0.310^3/ul Basophils # 0.110^3/ul Nucleated Red Blood Cells # 0.010^3/ul Sodium Level 144mmol/L Potassium Level 4.3mmol/L Chloride Level 104mmol/L Carbon Dioxide Level 26mmol/L Anion Gap 18 Blood Urea Nitrogen 5mg/dl Creatinine 0.77mg/dl Glucose Level 95mg/dl Calcium Level 9.6mg/dl Total Bilirubin 0.6mg/dl Direct Bilirubin 0.00mg/dl Indirect Bilirubin 0.6mg/dl Aspartate Amino Transf (AST/SGOT) 24IU/L Alanine Aminotransferase (ALT/SGPT) 35IU/L Alkaline Phosphatase 79IU/L Total Protein 7.5g/dl Albumin 4.8g/dl Globulin 2.70g/dl Albumin/Globulin Ratio 1.77 Urine Color STRAW Urine Clarity CLEAR Urine pH 6.0 Urine Specific [place] 1.005 Urine Ketones 1+mg/dL Urine Nitrite NEGATIVEmg/dL Urine Bilirubin NEGATIVEmg/dL Urine Urobilinogen NEGATIVEmg/dL Urine Leukocyte Esterase NEGATIVELeu/ul Urine Microscopic RBC 0/HPF Urine Microscopic WBC 0/HPF Urine Squamous Epithelial Cells FEW/HPF Urine Hemoglobin 1+mg/dL Urine Glucose NEGATIVEmg/dL Urine Total Protein NEGATIVEmg/dl Current Medications Medications (Trade) Dose Ordered Sig/Thad Route PRN Reason Start Time Stop Time Status Last Admin Dose Admin Dexamethasone 8 mg 8 mg ONCE ONCE IV 01/24/17 16:00 01/24/17 16:01 DC 01/24/17 16:17 Sodium Chloride (NS) 1,000 ml @ 1,000 mls/hr Q1H ONCE IV 01/24/17 16:00 01/24/17 16:59 DC 01/24/17 16:17 Procedures/MDM Patient is presenting with 1 month of symptoms including headache, dizziness, stiff neck, pain. Patient currently does not have nausea or abdominal pain. Physical exam was unremarkable for Kernig's or Brudzinski's. I enlisted the help of my supervising physician Dr. Hill who suggested getting basic labs including CBC, CMP, urinalysis, urine and give a shot milligrams of Decadron to evaluate for possible viral pathologies. Urine test was negative. Other lab results were largely unremarkable. At this time most likely diagnosis is chronic fatigue due to unknown etiology and chronic dizziness due to unknown etiology. At this time a very little suspicion for any intracranial pathology or neurovascular compromise or obstructive airways pathologies. I have spoke with the patient regarding their condition and future management. They have verbally responded that they understand their status and treatment plan. The patients vitals are stable, and their current condition is appropriate for discharge. The patient will be given discharge instructions with return precautions. Departure Diagnosis: Primary Impression: Fatigue Qualified Code: R53.82 - Chronic fatigue Additional Impression: Dizziness Condition: Stable Additional Instructions: Follow up with your PCP within the next 1-3 days for a more thorough evaluation and a possible referral to a specialist. Return the the emergency department immediately if symptoms worsen or change. If you have any questions regarding medications, ask your pharmacist or us before you leave. If any adverse reactions occur while taking your medications, discontinue the treatment and return to the emergency department immediately. Take your medications as directed, and complete the entire course of treatment. LUIS REINA PA-C Jan 24, 2017 16:02
[2017-01-24 16:18] LABS: BASOPHIL # 0.1 10^3/ul (0.0-0.1); BASOPHILS % 0.6 % (0.0-2.0); EOSINOPHILS # 0.3 10^3/ul (0.0-0.5); EOSINOPHILS % 3.2 % (0.0-7.0); HEMATOCRIT 42.6 % (37.0-47.0); HEMOGLOBIN 14.6 g/dl (12.0-16.0); LYMPHOCYTES # 2.5 10^3/ul (0.8-2.9); MEAN CORPUSCULAR HGB CONC 34.3 g/dl (32.0-37.0); MEAN CORPUSCULAR VOLUME 87.7 fl (82.0-101.0); MEAN PLATELET VOLUME 11.3 fl (7.4-10.4); MONOCYTE # 0.5 10^3/ul (0.3-0.9); MONOCYTES % 6.1 % (0.0-11.0); NEUTROPHIL # 4.5 10^3/ul (1.6-7.5); NEUTROPHILS % 57.7 % (39.0-77.0); PLATELET COUNT 247 10^3/UL (140-415); RED BLOOD COUNT 4.86 10^6/ul (4.20-5.40); RED CELL DISTRIBUTION WIDTH 13.4 % (11.5-14.5); WHITE BLOOD COUNT 7.9 10^3/ul (4.8-10.8)
[2017-01-24 16:44] LABS: ADD UMIC YES; UR ASCORBIC ACID NEGATIVE (NEGATIVE); UR BILIRUBIN (Dip) NEGATIVE (NEGATIVE); UR BLOOD (Dip) 1+ mg/dL (NEGATIVE); UR CLARITY CLEAR (CLEAR); UR COLOR STRAW (YELLOW); UR GLUCOSE (Dip) NEGATIVE (NEGATIVE); UR KETONES (Dip) 1+ mg/dL (NEGATIVE); UR LEUKOCYTE ESTERASE (Dip) NEGATIVE Leu/ul (NEGATIVE); UR NITRITE (Dip) NEGATIVE (NEGATIVE); UR RBC 0 /HPF (0-5); UR SPECIFIC GRAVITY (Dip) 1.005 (1.003-1.030); UR SQUAMOUS EPITHELIAL CELL FEW /HPF (FEW); UR TOTAL PROTEIN (Dip) NEGATIVE (NEGATIVE); UR UROBILINOGEN (Dip) NEGATIVE (NEGATIVE)
[2017-01-24 16:56] LABS: ALBUMIN 4.8 g/dl (3.3-4.9); ALBUMIN/GLOBULIN RATIO 1.77; BILIRUBIN,INDIRECT 0.6 mg/dl (0-1.1); BILIRUBIN,TOTAL 0.6 mg/dl (0.2-1.3); CALCIUM 9.6 mg/dl (8.4-10.2); CREATININE 0.77 mg/dl (0.44-1.00); POTASSIUM 4.3 mmol/L (3.5-5.1); TOTAL PROTEIN 7.5 g/dl (6.1-8.1)
[2017-01-24 17:52] VITALS: BP 127/67; PULSE 83; RESP 16; TEMP 98.7
[2017-01-24] MEDS ORDERED: METOCLOPRAMIDE 10 MG TAB PO ONE (18:00)
[2017-01-24] MEDS ORDERED: HYDROCODONE/APAP (5/325) TAB PO ONE (18:00)
== END 2017-01-24 17:56 | disposition home or self-care (01) ==
LOC: FTE 13:30
DX: R53.82 Chronic fatigue, unspecified (principal); R42 Dizziness and giddiness; Z91.010 Allergy to peanuts
CPT/HCPCS: 36415; 80053; 81001; 85025; 96374; J1100; J7030; Z7502; Z7610

== ENCOUNTER 2017-07-03 13:27 | Emergency (ER) | END 2017-07-03 16:37 | disposition left against medical advice (07) ==

== ENCOUNTER 2017-07-08 09:45 | Emergency (ER) | END 2017-07-08 13:50 | disposition home or self-care (01) ==

== ENCOUNTER 2017-08-09 12:54 | Emergency (ER) | END 2017-08-09 19:34 | disposition home or self-care (01) ==

== ENCOUNTER 2017-09-11 03:42 | Emergency (ER) | END 2017-09-11 13:08 | disposition home or self-care (01) ==

== ENCOUNTER 2017-12-05 14:39 | Emergency (ER) | END 2017-12-05 18:13 | disposition home or self-care (01) ==

== ENCOUNTER 2017-12-29 07:58 | Emergency (ER) | END 2017-12-29 10:55 | disposition home or self-care (01) ==

== ENCOUNTER 2018-01-09 08:24 | Emergency (ER) | END 2018-01-09 10:25 | disposition home or self-care (01) ==

== ENCOUNTER 2018-05-18 11:59 | Emergency (ER) | END 2018-05-18 14:07 | disposition home or self-care (01) ==

== ENCOUNTER 2019-03-10 19:32 | Emergency (ER) | payer OTHER ==
[~2019-03-10] VITALS: Ht 160 cm; Wt 82.1 kg
[~2019-03-10 19:32] MED LIST changes: +IBUP-1544 PO; -IBUP800T25 PO; +IBUP800T48 PO; +MAGN296S40 PO; +METH500T PO; +NAPR-688 PO; +NPH10OT BOTH EARS; +ONDA4TAB14 PO; +POLY17PO6 PO; +RANI150T35 PO; -RANI150T9 PO; +SODI126M NASAL
[2019-03-10 19:34] VITALS: Ht 160 cm; Wt 82.1 kg
[2019-03-10 23:36] VITALS: BP 126/78; PULSE 67; RESP 18
== END 2019-03-10 23:37 | disposition home or self-care (01) ==
LOC: FTE 19:32
DX: R09.89 Other specified symptoms and signs involving the circulatory and respiratory systems (principal); Z91.010 Allergy to peanuts
CPT/HCPCS: 70490; Z7502